=== PATIENT | male | born 1985 | race Caucasian/White ===

== ENCOUNTER 2017-06-26 00:58 | Emergency (ER) | payer BC ==
--- NOTE | 2017-06-26 02:05 | ER Document Report ---
ED General - General Chief Complaint: Chest Pain Stated Complaint: CHEST TIGHTNESS Time Seen by Provider: 06/26/17 01:43 Mode of Arrival: Ambulatory Information source: Patient Notes: Patient presents emergency department with sudden onset rib pain. Patient reports approximately 2 hours ago he started having pain in his ribs front and back. He reports worse in his back. Denies past medical history of injury. [place] Denies recent cold cough. Denies trauma. Denies fever vomiting diarrhea. Reports this is never happened to him before. Patient took Flexeril at home and it did not relieve him of his symptoms.Patient speaking in full sentences without problems. Respiratory rate even and unlabored. - HPI Onset: Just prior to arrival Onset/Duration: Sudden Severity: Severe Pain Level: 5 Associated symptoms: None Exacerbated by: Denies Relieved by: Denies Similar symptoms previously: No Recently seen / treated by doctor: No - Related Data Allergies/Adverse Reactions: No Known Allergies Allergy (Unverified 02/10/12 23:11) Past Medical History - General Information source: Patient - Social History Smoking Status: Current Every Day Smoker Cigarette use (# per day): Yes Frequency of alcohol use: None Drug Abuse: None Occupation: [employer] Family History: Reviewed & Not Pertinent Patient has suicidal ideation: No Patient has homicidal ideation: No Neurological Medical History: Reports: Hx Seizures Past Surgical History: Reports: Hx Orthopedic Surgery Review of Systems - Review of Systems Notes: Review HPI for review of systems., All other systems negative Physical Exam - Vital signs Vitals: Temp Pulse Resp BP Pulse Ox 97.6 F 91 18 138/108 H 99 06/26/17 01:14 06/26/17 01:14 06/26/17 01:14 06/26/17 01:14 06/26/17 01:14 - Notes Notes: PHYSICAL EXAMINATION: GENERAL: Well-appearing and in no acute distress HEAD: Atraumatic, normocephalic. EYES: Pupils equal round extraocular movements intact, sclera anicteric, conjunctiva are normal. ENT: nares patent, oropharynx clear without exudates. Moist mucous membranes. NECK: Normal range of motion, supple without lymphadenopathy LUNGS: CTAB and equal. No wheezes rales or rhonchi. chest wall nontender Resp even/unlabored HEART: Regular rate and rhythm without murmurs ABDOMEN: Soft, no tenderness. No guarding, no rebound EXTREMITIES: Normal range of motion, no pitting edema. No cyanosis. NEUROLOGICAL: Cranial nerves grossly intact. Normal sensory/motor exams. PSYCH: Normal mood, normal affect. SKIN: Warm, Dry, normal turgor, no rashes or lesions noted Course - Re-evaluation Re-evalutation: 06/26/17 02:[address] briceno, no further orders advised. pt reports he is feeling a little better, will try toradol to relieve patient 06/26/17 03:17 Patient reports pain is gone. Reports he feels much better. Still feels like his chest is tight. - Vital Signs Vital signs: Temp Pulse Resp BP Pulse Ox 97.9 F 78 17 134/76 H 96 06/26/17 03:29 06/26/17 03:29 06/26/17 03:29 06/26/17 03:29 06/26/17 03:29 - Diagnostic Test Radiology reviewed: Image reviewed, Reports reviewed - no acute pulmonary process Discharge - Discharge Clinical Impression: Rib pain, Elevated blood pressure reading Condition: Stable Disposition: HOME, SELF-CARE Instructions: Ibuprofen (General) ([facility]), Stop Smoking (OM), Toradol Injection ([facility]) Additional Instructions: *You have been evaluated for rib pain *Stop smoking, cough and deep breathe hourly *Take medication as prescribed *Monitor your temperature *Follow up with a primary care provider within one week *Return to ED for worsening condition, changes, needs, difficulty breathing, increased pain, fever Monitor your blood pressure. Your blood pressure was elevated today. This may be because you were anxious, in pain or because you need medication. It is important to follow up with your primary care provider for full evaluation. Prescriptions: Ibuprofen [Motrin 800 mg Tablet] 800 mg PO TID #30 tablet Forms: Smoking Cessation Education, Elevated Blood Pressure
[2017-06-26] MEDS ORDERED: KETOROLAC TROMETHAMINE 60 MG/2 ML SDV IM ONE (02:35)
--- NOTE | 2017-06-26 03:11 | RADIOLOGY REPORT (SQ) ---
EXAM DESCRIPTION: CHEST PA/LAT CLINICAL HISTORY: rib pain, sudden onset COMPARISON: None. FINDINGS: Frontal and lateral views of the chest. The cardiomediastinal silhouette has normal size and contour. No consolidation, pneumothorax, or pleural effusion. No displaced rib fractures identified. Upper abdominal soft tissues are unremarkable. IMPRESSION: 1. No acute pulmonary process identified.
[2017-06-26 03:31] VITALS: BP 134/76
--- NOTE | 2017-06-26 12:16 | EKG REPORT ---
SEVERITY:- NORMAL ECG - SINUS RHYTHM : Confirmed by: Kaya Carrera MD 26-Jun-2017 12:16:14
== END 2017-06-26 03:31 | disposition home or self-care (01) ==
LOC: ER 00:58
DX: R07.81 Pleurodynia (principal); F17.210 Nicotine dependence, cigarettes, uncomplicated; R03.0 Elevated blood-pressure reading, without diagnosis of hypertension
CPT/HCPCS: 93005; 99284; 96372; 71020; 93010; J1885